=== PATIENT | male | born 1990 | race Caucasian/White ===

== ENCOUNTER 2022-01-28 00:34 | Emergency (ER) | payer MEDICAID ==
[~2022-01-28] VITALS: Ht 175.3 cm; Wt 79.0 kg
[2022-01-28] MEDS ORDERED: cefTRIAXone SOD 1,000 MG VL IM ONE (07:00)
[2022-01-28 07:25] VITALS: BP 118/87
[2022-01-28] MEDS ORDERED: METH4PAK PO (07:53)
[2022-01-28] MEDS ORDERED: AZIT250T8 PO (07:53)
[2022-01-28] MEDS ORDERED: ALPRAZolam 0.5 MG TAB PO ONE (08:00)
[2022-01-28] MEDS ORDERED: IPRATROPIUM BROM 0.5 MG/2.5ML INH SOL NEB ONE (08:00)
[2022-01-28] MEDS ORDERED: ALBUTEROL SULF 2.5 MG/0.5ML(0.5%) NEB SOLN NEB ONE (08:00)
[2022-01-28 08:36] LABS: Amphetamine Screen, Urine NEGATIVE (NEGATIVE); Barbiturate Scree,Urine NEGATIVE (NEGATIVE); Benzodiazephine Screen, Urine NEGATIVE (NEGATIVE); Cannabinoid Screen, Urine POSITIVE (NEGATIVE); Cocaine Screen, Urine NEGATIVE (NEGATIVE); Opiate Scree,Urine NEGATIVE (NEGATIVE); Phencyclidine Screen, Urine NEGATIVE (NEGATIVE)
[2022-01-28] MEDS ORDERED: HYDR50CA PO (08:50)
== END 2022-01-28 08:54 | disposition home or self-care (01) ==
LOC: ER 00:34
DX: J02.9 Acute pharyngitis, unspecified (principal); F41.8 Other specified anxiety disorders; F15.10 Other stimulant abuse, uncomplicated; F17.210 Nicotine dependence, cigarettes, uncomplicated; Z79.2 Long term (current) use of antibiotics; Z79.899 Other long term (current) drug therapy
CPT/HCPCS: 70360; 71046; 80307; 94640; 99284; J7644